=== PATIENT | female | born 1995 | race African-American/Black ===

== ENCOUNTER 2021-06-11 00:02 | Inpatient (IN) ==
[2021-06-11] MEDS ORDERED: MEPERIDINE 50 MG/1 ML VIAL IV PRN (00:43)
[2021-06-11] MEDS ORDERED: BUTORPHANOL 2 MG/ML VIAL IV PRN (00:43)
[2021-06-11] MEDS ORDERED: ONDANSETRON 4 MG/2 ML VIAL IV PRN ×2 (00:43→20:47)
[2021-06-11 00:59] LABS: Basophils % 0.2 % (0.0-0.8); Eosinophils % 0.4 % (0.00-10.9); Hematocrit 33.7 VOL% (35.7-47.0); Hemoglobin 10.4 GM/DL (12.0-16.0); Immature Granulocytes % 0.5 %; Immature Granulocytes Absolute 0.05 #; Lymphocytes # 1.7 10*3/uL (1.4-4.0); Lymphocytes % 17.8 % (21.3-54.2); Mean Corpuscular HGB Conc 30.9 GM/DL (32-36); Mean Corpuscular Volume 80.2 FL (87-102); Mean Platelet Volume 12.3 FL (9.6-12.0); Monocytes % 6.8 % (1.7-12.7); Neutrophils % 74.3 % (38.7-73.9); Platelet Count 233 T/CUMM (130-400); Red Cell Distribution Width 14.3 % (9.3-17.3); White Blood Count 9.6 T/CUMM (4-12)
[2021-06-11] MEDS ORDERED: LACTATED RINGERS 1,000 ML IV SCH ×2 (01:00→20:47)
[2021-06-11 01:21] LABS: Alanine Aminotransferase 15 U/L (13-56); Albumin 2.5 G/DL (3.4-5.0); Alkaline Phosphatase 159 U/L (45-117); Aspartate Amino Transferase 14 U/L (0-37); Bilirubin,Total < 0.39 MG/DL (0.20-1.00); Blood Urea Nitrogen 8 MG/DL (7-18); Calcium 8.9 MG/DL (8.5-10.1); Carbon Dioxide 23 MMOL/L (21-32); Estimated Glom Filtration Rate 243 ML/MIN; Glucose 98 MG/DL (74-106); Osmolality,Calculated 272.7 MOS/KG (273-304); Potassium 3.8 MMOL/L (3.5-5.1); Sodium 138 MMOL/L (136-145); Total Protein 6.6 G/DL (6.4-8.2)
[2021-06-11] MEDS ORDERED: OXYTOCIN/LR 20 UNIT/1,000 ML BAG IV SCH (01:30)
[2021-06-11 08:12] LABS: Basophils % 0.3 % (0.0-0.8); Eosinophils % 0.3 % (0.00-10.9); Hematocrit 31.8 VOL% (35.7-47.0); Hemoglobin 10.3 GM/DL (12.0-16.0); Immature Granulocytes % 0.3 %; Immature Granulocytes Absolute 0.02 #; Lymphocytes # 1.3 10*3/uL (1.4-4.0); Lymphocytes % 16.6 % (21.3-54.2); Mean Corpuscular HGB Conc 32.4 GM/DL (32-36); Mean Corpuscular Volume 78.9 FL (87-102); Mean Platelet Volume 12.2 FL (9.6-12.0); Monocytes % 6.5 % (1.7-12.7); Platelet Count 190 T/CUMM (130-400); Red Blood Count 4.03 MC/CUMM (3.8-5.5); Red Cell Distribution Width 14.2 % (9.3-17.3); White Blood Count 7.8 T/CUMM (4-12)
[2021-06-11 08:26] LABS: INR 0.9; PT Patient Result 10.3 SECS (10.5-12.0)
[2021-06-11 08:29] LABS: Protein/Creatinine Ratio,Urine 0.2 RATIO
[2021-06-11 08:32] LABS: Alanine Aminotransferase 16 U/L (13-56); Albumin 2.4 G/DL (3.4-5.0); Alkaline Phosphatase 153 U/L (45-117); Aspartate Amino Transferase 15 U/L (0-37); Bilirubin,Direct < 0.100 MG/DL (0.0-0.20); Blood Urea Nitrogen 6 MG/DL (7-18); Calcium 8.9 MG/DL (8.5-10.1); Carbon Dioxide 21 MMOL/L (21-32); Estimated Glom Filtration Rate 267 ML/MIN; Glucose 85 MG/DL (74-106); Osmolality,Calculated 273.5 MOS/KG (273-304); Potassium 3.7 MMOL/L (3.5-5.1); Sodium 139 MMOL/L (136-145); Total Protein 6.3 G/DL (6.4-8.2); Uric Acid 3.4 MG/DL (2.6-6.0)
[2021-06-11] MEDS ORDERED: TERBUTALINE 1 MG/1 ML VIAL SUBCUT ONE (12:50)
[2021-06-11] MEDS ORDERED: CITRIC ACID/SODIUM CITRATE 30 ML UDCUP PO ONE (13:51)
[2021-06-11] MEDS ORDERED: FAMOTIDINE 20 MG/2 ML VIAL IV ONE (13:51)
[2021-06-11] MEDS ORDERED: ceFAZolin 3,000 MG in SYRINGE 1 EACH IV ONE (14:00)
[2021-06-11] MEDS ORDERED: miSOPROStoL 200 MCG TABLET ONE (14:18)
[2021-06-11] MEDS ORDERED: TRANEXAMIC ACID 1,000 MG/10 ML VIAL ONE (14:19)
[2021-06-11] MEDS ORDERED: METHYLERGONOVINE 0.2 MG/1 ML AMP ONE (14:19)
[2021-06-11] MEDS ORDERED: CARBOPROST TROMETHAMINE 250 MCG/ML AMP IM ONE (14:19)
[2021-06-11] MEDS ORDERED: OXYTOCIN/LR 30 UNIT/1,000 ML BAG IV ONE (14:40)
[2021-06-11] MEDS ORDERED: OXYTOCIN 10 UNIT/ML VIAL IM ONE (14:40)
[2021-06-11] MEDS ORDERED: BUPIVACAINE SPINAL 0.75% 2 ML AMP SPINAL ONE (14:44)
[2021-06-11] MEDS ORDERED: ONDANSETRON 4 MG/2 ML VIAL ONE (14:46)
[2021-06-11] MEDS ORDERED: PHENYLEPHRINE 1 MG/10 ML SYRINGE IV ONE (15:41)
[2021-06-11] MEDS ORDERED: ACETAMINOPHEN INJ 1,000 MG/100 ML VIAL IV ONE (15:41)
[2021-06-11] MEDS ORDERED: KETOROLAC 30 MG/1 ML VIAL ONE (15:43)
[2021-06-11 15:44] LABS: Cord Arterial Blood HCO3 23.3 MMOL/L
[2021-06-11 15:46] LABS: Cord Venous Blood HCO3 22.6 MMOL/L; Cord Venous Blood PCO2 65.2 MMHG; Cord Venous Blood PO2 < 19.0 MMHG
[2021-06-11 18:33] LABS: Bilirubin,Urine Negative (Negative); Blood, Urine Negative (Negative); Glucose,Urine (UA) Negative (Negative); Ketones,Urine 80 mg/dL (Negative); Mucus,Urine Many /LPF (Occasional); Nitrite,Urine Negative (Negative); Protein,Urine 30 MG/DL; RBC,Urine 1 /HPF (0-4); Squamous Epithelial Cell,Urine Occasional /HPF (0-10); Urine Appearance CLEAR (Clear); Urine Color Yellow (Yellow); Urine Urobilinogen < 2.0 EU/DL (0.2-1.0)
[2021-06-11] MEDS ORDERED: ACETAMINOPHEN 325 MG TABLET PO PRN (20:47)
[2021-06-11] MEDS ORDERED: OXYTOCIN/LR 20 UNIT/1,000 ML BAG IV ONE (20:47)
[2021-06-11] MEDS ORDERED: RHO(D) IMMUNE GLOBULIN 300 MCG SYRINGE IM ONE (20:47)
[2021-06-11] MEDS: ACETAMINOPHEN 500 MG TABLET PO SCH (21:13)
[2021-06-11] MEDS: KETOROLAC 30 MG/1 ML VIAL IV SCH (21:15)
[2021-06-11] MEDS: DOCUSATE SODIUM 100 MG CAPSULE PO SCH (21:44)
[2021-06-11] MEDS: ceFAZolin 2,000 MG/50 ML DUPLEX IV SCH (22:22)
[2021-06-11 23:56] LABS: Basophils % 0.2 % (0.0-0.8); Eosinophils % 0.2 % (0.00-10.9); Hematocrit 29.6 VOL% (35.7-47.0); Hemoglobin 9.2 GM/DL (12.0-16.0); Immature Granulocytes % 0.3 %; Immature Granulocytes Absolute 0.03 #; Lymphocytes # 1.5 10*3/uL (1.4-4.0); Lymphocytes % 17.6 % (21.3-54.2); Mean Corpuscular HGB Conc 31.1 GM/DL (32-36); Mean Corpuscular Volume 80.2 FL (87-102); Mean Platelet Volume 12.6 FL (9.6-12.0); Monocytes % 6.5 % (1.7-12.7); Neutrophils % 75.2 % (38.7-73.9); Platelet Count 191 T/CUMM (130-400); Red Blood Count 3.69 MC/CUMM (3.8-5.5); Red Cell Distribution Width 14.2 % (9.3-17.3); White Blood Count 8.7 T/CUMM (4-12)
[2021-06-12] MEDS: ACETAMINOPHEN 500 MG TABLET PO SCH ×2 (03:11→10:27)
[2021-06-12] MEDS: KETOROLAC 30 MG/1 ML VIAL IV SCH ×2 (03:13→10:27)
[2021-06-12] MEDS: ceFAZolin 2,000 MG/50 ML DUPLEX IV SCH (05:29)
[2021-06-12 05:45] LABS: Basophils % 0.3 % (0.0-0.8); Eosinophils % 0.3 % (0.00-10.9); Hematocrit 29.2 VOL% (35.7-47.0); Immature Granulocytes % 0.4 %; Immature Granulocytes Absolute 0.03 #; Lymphocytes # 1.5 10*3/uL (1.4-4.0); Lymphocytes % 19.7 % (21.3-54.2); Mean Corpuscular HGB Conc 30.8 GM/DL (32-36); Mean Corpuscular Volume 79.6 FL (87-102); Mean Platelet Volume 12.4 FL (9.6-12.0); Neutrophils % 71.3 % (38.7-73.9); Platelet Count 178 T/CUMM (130-400); Red Blood Count 3.67 MC/CUMM (3.8-5.5); Red Cell Distribution Width 14.2 % (9.3-17.3); White Blood Count 7.7 T/CUMM (4-12)
[2021-06-12] MEDS: MULTIVITAMIN (PRENATAL) TABLET PO SCH (10:08)
[2021-06-12] MEDS: FERROUS SULFATE 325 MG TABLET PO SCH ×3 (10:08→20:45)
[2021-06-12] MEDS: DOCUSATE SODIUM 100 MG CAPSULE PO SCH ×3 (10:08→20:44)
[2021-06-12] MEDS: SIMETHICONE CHEW 80 MG TABLET PO PRN (10:08)
[2021-06-12] MEDS: MAGNESIUM HYDROXIDE SUSP 30 ML UDCUP PO PRN ×2 (10:08→19:20)
[2021-06-12] MEDS: METOCLOPRAMIDE 10 MG TABLET PO SCH ×3 (10:08→23:01)
[2021-06-12] MEDS: IBUPROFEN 800 MG TABLET PO PRN (19:19)
[2021-06-13] MEDS: IBUPROFEN 800 MG TABLET PO PRN (05:27)
[2021-06-13] MEDS ORDERED: FUROSEMIDE 40 MG TABLET PO ONE (08:55)
[2021-06-13] MEDS ORDERED: FUROSEMIDE 20 MG TABLET ONE (09:06)
[2021-06-13] MEDS: METOCLOPRAMIDE 10 MG TABLET PO SCH (09:24)
[2021-06-13] MEDS: FERROUS SULFATE 325 MG TABLET PO SCH (09:24)
[2021-06-13] MEDS: MULTIVITAMIN (PRENATAL) TABLET PO SCH (09:24)
[2021-06-13] MEDS: DOCUSATE SODIUM 100 MG CAPSULE PO SCH (09:24)
[2021-06-13] MEDS: SIMETHICONE CHEW 80 MG TABLET PO PRN (09:24)
[2021-06-13] MEDS: MAGNESIUM HYDROXIDE SUSP 30 ML UDCUP PO PRN (09:24)
[2021-06-13] MEDS ORDERED: FUROSEMIDE 20 MG TABLET PO ONE (09:25)
[2021-06-13 09:56] VITALS: BP 152/88
== END 2021-06-13 11:50 | disposition home or self-care (01) | DRG 788 ==
LOC: N.LD 00:02 → N.OB 20:50
PROVIDERS: ADMIT Obstetrics & Gynecology; ATTEND Obstetrics & Gynecology
PROC: LDCSECT (ICD-10-PCS; 2021-06-11 14:55)